=== PATIENT | female | born 1945 | race Caucasian/White ===

== ENCOUNTER → 2018-07-08 | Outpatient (CLI) | payer MEDICARE, OTHER ==
[~2018-07-08] MED LIST: SIMV10TA3 PO
--- NOTE | 2018-07-08 11:30 | RAD ---
MR#: [id number] Date of Study: 07/08/2018 Ordering Physician: JESUS MEDINA, Referring Physician: ARABELLA HUBBARD Tech: RT Derrick Demarco) (N) APPROVED REPORT Test Type: Exercise Stress Nurse/Tech: RT Nilam ([place]) (N) Test Indications: atypical chest pain Cardiac History: none Medications: simvastatin Medical History: history of breast cancer Resting ECG: Sinus valerie, no acute changes Resting Heart Rate: 51 bpm Resting Blood Pressure: 164/62mmHg Pretest Chest Pain: None Nurse/Tech Notes Consent: The procedure was explained to the patient in lay terms. Informed consent was witnessed. Mode eout was entered into [employer]. History and Stress Test performed by RT Derrick Demarco) (N) POST EXERCISE Reason for Termination: Fatigue Target HR: Yes Max HR: 162 bpm 112% of Maximum Predicted HR: 145 bpm Exercise duration: 4:10 min:sec, 2 Stage Exercise capacity: 7METs Max Blood Pressure: 181/73mmHg Blood Pressure response to exercise: Normal blood pressure response during stress. Chest Pain: No. INTERPRETATION Stress EKG Conclusion: nO ISCHEMIA Imaging Protocol IMAGE PROTOCOL: Rest Tc-99m/stress Tc-99m 1 day Rest: Stress: Viability: Radiopharm.Tc99m ZdvyljsqyBn01d Sestamibi Dose11.7mCi 34.2mCi Duration 20min. 15min. Img Date 07/08/2018 07/08/2018 Inj-Img [id number]. 45min. Rest Admin Site:IV - Right AntecubitalAdministrator: RT Nilam ([place])(N) Stress Admin Site: IV - Right AntecubitalAdministrator: RT Derrick Demarco)(N) STRESS DATA End Diast. Vol.58.0mlAv. Heart Rate55.0bpm LVEDV index BSA1.0mlCardiac Output0.1L/min End Syst. Vol.10.0mlCO Index BSA2.6L/min LVESV index BSA0.0mlMyocardial Tiny815.0g Eject. Gdgpnxet23.0% Stress Rates Pk. Fill Rate2.75EDV/secLVtime Pk. Fill 248.62msec Pk. Empty Rate4.01ESV/secLVtime Pk. Zyjcd944.17msec /3 Pk. Fill1.17EDV/sec Stress Scores Regional WT0.00Summed WT1.00 Regional WM0.00Summed WM2.00 The rest and stress images show normal perfusion, normal contraction and thickening. LV Perf. Quant 17 Seg. SSS0.00 17 Seg. SRS0.00 17 Seg. SDS0.00 Stress Defect Extent (% LAD)0.00Rest Defect Extent (% LAD)0.00Rev. Defect Extent (% LAD)0.00 Stress Defect Extent (% LCX) 0.00Rest Defect Extent (% LCX)0.00Rev. Defect Extent (% LCX)0.00 Stress Defect Extent (% RCA)0.00Rest Defect Extent (% RCA)0.00Rev. Defect Extent (% RCA)0.00 Stress Defect Extent (% TONI)0.00Rest Defect Extent (% TONI)0.00Rev. Defect Extent (% TONI)0.00 Other Information Quality:Good Risk Assessment: Low Risk Conclusion 1. No evidence of EKG changes with stress testing. 2. Normal perfusion at stress/rest. 3. Low risk study. 4. EF > 60%. Signed by : Jesus Medina, Electronically Approved : 07/08/2018 11:29:49
== END | disposition home or self-care (01) ==
LOC: NM 07:38
PROVIDERS: ATTEND Internal Medicine Cardiovascular Disease
DX: R07.89 Other chest pain (principal); R00.1 Bradycardia, unspecified; Z85.3 Personal history of malignant neoplasm of breast
CPT/HCPCS: 78452; 93017; 96374; 96375; 96376; A9500

== ENCOUNTER → 2019-06-06 | Outpatient (CLI) | payer MEDICARE, OTHER ==
--- NOTE | 2019-06-10 16:25 | RAD ---
DATE: 06/06/2019 EXAM: MAMMO THANIA SCREENING BILATERAL HISTORY: Routine screening. Left malignancy diagnosed in 2008 with lumpectomy history. COMPARISON: [facility] mammographic examinations performed as far back as 05/04/2015 This study was interpreted with the benefit of Computerized Aided Detection (CAD). Breast Density: HETERO The breast parenchyma is heterogenously dense, which could reduce sensitivity of mammography. Breast parenchyma level C. FINDINGS: Right-sided lumpectomy clips and biopsy clip marker are present. Biopsy clip marker involving the left inner breast is also present. No new masses or suspicious distortion. No suspicious calcifications. IMPRESSION: Stable BI-RADS CATEGORY: 1 NEGATIVE RECOMMENDED FOLLOW-UP: 12M 12 MONTH FOLLOW-UP PQRS compliance statement: Patient information was entered into a reminder system with a target due date for the next mammogram. Mammography is a sensitive method for finding small breast cancers, but it does not detect them all and is not a substitute for careful clinical examination. A negative mammogram does not negate a clinically suspicious finding and should not result in delay in biopsying a clinically suspicious abnormality. "Our facility is accredited by the [employer] Mammography Program."
== END | disposition home or self-care (01) ==
LOC: MAMMO 11:25
PROVIDERS: ATTEND Specialist
DX: Z12.31 Encounter for screening mammogram for malignant neoplasm of breast (principal); Z85.3 Personal history of malignant neoplasm of breast
CPT/HCPCS: 77063; 77067

== ENCOUNTER → 2019-10-31 | Outpatient (CLI) | payer MEDICARE, OTHER ==
[~2019-10-31] MED LIST changes: +SIMV10TA15 PO; -SIMV10TA3 PO
--- NOTE | 2019-10-31 15:37 | RAD ---
CHEST PA LATERAL History: Cough Comparison: None. Findings: Frontal and lateral views of the chest were obtained. The cardiomediastinal silhouette is normal. Pulmonary vasculature is normal. The lungs are clear. No pleural effusion or pneumothorax is seen. There is no acute bone abnormality. Levoconvex scoliosis of the lower thoracic and upper lumbar spine is partially seen. IMPRESSION: No acute cardiopulmonary process. Electronically signed by: Eamon Sellers MD (10/31/2019 3:34 PM) [facility]
== END | disposition home or self-care (01) ==
LOC: DXRAD 15:16
PROVIDERS: ATTEND Specialist
DX: R06.02 Shortness of breath (principal); M41.85 Other forms of scoliosis, thoracolumbar region
CPT/HCPCS: 71046

== ENCOUNTER 2020-06-14 18:54 | Emergency (ER) | payer MEDICARE, OTHER ==
[~2020-06-14] VITALS: Ht 167.6 cm; Wt 66.2 kg
[2020-06-14 18:54] VITALS: BP 149/77
--- NOTE | 2020-06-14 18:59 | PHYS DOC ---
General Adult EDM: Chief Complaint: LACERATION/AVULSION HPI: HPI: ".. I was a little light headed.. and sharad tripped .. fell.. My head hit the edege of the bench.. It did not knock me out....".." could not get the bleeding to stop..." Patient is a 75 year old female who presents with above hx and complaints of 5 cm laceration contusion to forehead a hair line with hematoma.. Patient does not remember her last tetanus. Patient denies any loss of consciousness. Some mild headache tenderness and neck soreness. No other injuries reported. Patient recently being evaluated for dementia. Pt. follows with Ferny Vides. No history of travel. No history of ill contacts. Does have a history of arthritis, TIAs, CVAs. Review of Systems: Review of Systems: Constitutional: Denies fever or chills Eyes: Denies change in visual acuity HENT: Denies nasal congestion or sore throat . Complaints of laceration Respiratory: Denies cough or shortness of breath Cardiovascular: Denies chest pain or edema GI: Denies abdominal pain, nausea, vomiting, bloody stools or diarrhea : Denies dysuria Musculoskeletal: Denies back pain or joint pain Integument: Denies rash Neurologic: Complaints of headache,. Denies focal weakness or sensory changes Endocrine: Denies polyuria or polydipsia Lymphatic: Denies swollen glands Psychiatric: Denies depression or anxiety Heart Score: Risk Factors: Risk Factors: DM, Current or recent (<one month) smoker, HTN, HLP, family h istory of CAD, obesity. Risk Scores: Score 0 - 3: 2.5% MACE over next 6 weeks - Discharge Home Score 4 - 6: 20.3% MACE over next 6 weeks - Admit for Clinical Observation Score 7 - 10: 72.7% MACE over next 6 weeks - Early Invasive Strategies Family History: Family History: Noncontributory Current Medications: Current Meds: See nursing for home meds Allergies: Allergies: Allergies Coded Allergies Type Severity Reaction Last Updated Verified No Known Drug Allergies 07/08/18 No Physical Exam: PE: Constitutional: Mild distress, non-toxic appearance. [] HENT: Normocephalic, 5 cm laceration and hematoma to the hairline frontal, bilateral external ears normal, oropharynx moist, no oral exudates, nose normal. [] Eyes: PERRLA, EOMI, conjunctiva normal, no discharge. [] Neck: Normal range of motion, mild paraspinal tenderness, supple, no stridor. [] Cardiovascular:Heart rate regular rhythm, no murmur [PMI to the left Lungs & Thorax: Bilateral breath sounds equal at apex auscultation [] Abdomen: Bowel sounds normal, soft, no tenderness, no masses, no pulsatile masses. [] Skin: Warm, dry, no erythema, no rash. Poor turgor Back: No tenderness, no CVA tenderness. [] Extremities: No tenderness, no cyanosis, no clubbing, ROM intact, no edema. Arthritic changes Neurologic: Alert and oriented X 3, moves all extremities on request, has distal sensory,, no focal deficits noted. [] Psychologic: Affect anxious, judgement normal, mood normal. [] Patient does report chronic memory issues EKG: EKG: [] Radiology/Procedures: Radiology/Procedures: [place] [address] IMAGING REPORT Signed PATIENT: ALIA REEDER ACCOUNT: [id number] : 1945 LOCATION: ER AGE: 75 SEX: F EXAM STATUS: REG ER ORD. PHYSICIAN: LIANET HAMEED MD REASON: head injury PROCEDURE: CT HEAD AND CERVICAL SPINE WO EXAM: CT head and cervical spine without contrast INDICATION: Head injury COMPARISON: None TECHNIQUE: Axial CT imaging through the head and cervical spine without intravenous contrast. Sagittal and coronal reformats of the cervical spine were obtained. One or more of the following individualized dose reduction techniques were utilized for this examination: 1. Automated exposure control 2. Adjustment of the mA and/or kV according to patient size 3. Use of iterative reconstruction technique. FINDINGS: CT head: The ventricles and sulci are mildly enlarged. There is mild periventricular and deep white matter hypoattenuation, greatest along the frontal horns. There is a small amount of encephalomalacia in the anterior right frontal lobe.. Munguia-white matter differentiation is maintained. There is no intracranial hemorrhage, acute infarct, or mass lesion. Basal cisterns are clear. The skull and scalp are intact. There is mild circumferential mucosal thickening and polypoid debris or retention cysts in the right sphenoid sinus. The remaining paranasal sinuses and mastoid air cells are clear. Globes and orbits are intact.. Globes and orbits are intact. CT cervical spine: No acute fracture. There is 3 mm anterolisthesis of C3 on C4 and 2 mm anterolisthesis of C7 on T1. Mild reversal of lordosis. There is severe disc space narrowing at C4-C5, C5-C6 and C6-C7. Moderate at C3-C4 and C7-T1. Severe facet arthrosis at C3-C4 bilaterally, and on the left at C3. Mild foraminal narrowing at multiple levels. There are large disc osteophyte complexes at C4-C5, C5-6, C6-C7 with suspected mild canal narrowing. Prevertebral soft tissues normal. There are multiple calcifications in the palatine tonsils. A 1.4 cm hypodense nodules in the right thyroid lobe. Mild pleural parenchymal scarring in the lung apices. IMPRESSION: 1. No acute intracranial abnormality. 2. Mild volume loss and mild white matter disease. Small amount of encephalomalacia in the anterior right frontal lobe. 3. No acute osseous abnormality. 4. Moderate to severe degenerative disc disease with degenerative listhesis. Electronically signed by: Xenia Goldman MD (06/14/2020 9:17 PM) [id number] DICTATED AND SIGNED BY: XENIA GOLDMAN MD DATE: 06/14/202116 CC: LIANET HAMEED MD; GLORIA GREENE MD ~ [][address] [id number] IMAGING REPORT Signed PATIENT: ALIA REEDER ACCOUNT: [id number] : 1945 LOCATION: ER AGE: 75 SEX: F EXAM STATUS: PRE ER ORD. PHYSICIAN: LIANET HAMEED MD REASON: head injury , syncope PROCEDURE: CHEST AP ONLY INDICATION: Reason: head injury , syncope / Spl. Instructions: / History: COMPARISON: October 31, 2019 FINDINGS: Single view of chest obtained. No focal airspace consolidation. Cardiac silhouette is unremarkable. Scoliotic curvature throughout the spine. A definite grossly displaced fracture is not seen IMPRESSION: * No focal airspace consolidation or edema. Electronically signed by: Amy Preciado MD (06/14/2020 7:51 PM) [id number] DICTATED AND SIGNED BY: AMY PRECIADO MD DATE: 06/14/201950 CC: LIANET HAMEED MD; GLORIA GREENE MD ~ Course & Med Decision Making: Course & Med Decision Making Pertinent Labs and Imaging studies reviewed. (See chart for details) Procedure note; laceration cleaning and repair-cleaned area of laceration with peroxide and normal saline. Injected into the laceration with 2% lidocaine. Irrigated wound and digitally explored. Placed 3m6-4-Hmomry sutures. Bacitracin applied. Tetanus updated. The patient apply Polysporin to wound 4 times a day. Keep clean and dry. Sutures will dissolve. Return if any concerns. Must have reexam if vomits more than once. Impression: 1. Head injury 2. Laceration 5 cm and contusion [] Nazario Disclaimer: Nazario Disclaimer: This electronic medical record was generated, in whole or in part, using a voice recognition dictation system. Departure Departure: Disposition: 01 HOME/RESIDENCE PRIOR TO ADM Condition: STABLE Referrals: GLORIA GREENE MD (PCP) Nazario Disclaimer This chart was dictated in whole or in part using Voice Recognition software in a busy, high-work load, and often noisy Emergency Department environment. It may contain unintended and wholly unrecognized errors or omissions. LIANET HAMEED MD Jun 14, 2020 18:59
[2020-06-14] MEDS ORDERED: BACITRACIN ZINC TOPICAL OINT PACKET. TP ONE (19:15)
[2020-06-14] MEDS ORDERED: LIDOCAINE 2% 20 ML VIAL. IJ ONE (19:15)
[2020-06-14] MEDS ORDERED: DIPH,PERTUSS(ACELL),TET VAC/PF 0.5 ML SYRINGE. VAX IM ONE (19:30)
--- NOTE | 2020-06-14 19:54 | RAD ---
INDICATION: Reason: head injury , syncope / Spl. Instructions: / History: COMPARISON: October 31, 2019 FINDINGS: Single view of chest obtained. No focal airspace consolidation. Cardiac silhouette is unremarkable. Scoliotic curvature throughout the spine. A definite grossly displaced fracture is not seen IMPRESSION: * No focal airspace consolidation or edema. Electronically signed by: Domenico Preciado MD (06/14/2020 7:51 PM) [id number]
--- NOTE | 2020-06-14 21:20 | RAD ---
EXAM: CT head and cervical spine without contrast INDICATION: Head injury COMPARISON: None TECHNIQUE: Axial CT imaging through the head and cervical spine without intravenous contrast. Sagittal and coronal reformats of the cervical spine were obtained. One or more of the following individualized dose reduction techniques were utilized for this examination: 1. Automated exposure control 2. Adjustment of the mA and/or kV according to patient size 3. Use of iterative reconstruction technique. FINDINGS: CT head: The ventricles and sulci are mildly enlarged. There is mild periventricular and deep white matter hypoattenuation, greatest along the frontal horns. There is a small amount of encephalomalacia in the anterior right frontal lobe.. Munguia-white matter differentiation is maintained. There is no intracranial hemorrhage, acute infarct, or mass lesion. Basal cisterns are clear. The skull and scalp are intact. There is mild circumferential mucosal thickening and polypoid debris or retention cysts in the right sphenoid sinus. The remaining paranasal sinuses and mastoid air cells are clear. Globes and orbits are intact.. Globes and orbits are intact. CT cervical spine: No acute fracture. There is 3 mm anterolisthesis of C3 on C4 and 2 mm anterolisthesis of C7 on T1. Mild reversal of lordosis. There is severe disc space narrowing at C4-C5, C5-C6 and C6-C7. Moderate at C3-C4 and C7-T1. Severe facet arthrosis at C3-C4 bilaterally, and on the left at C3. Mild foraminal narrowing at multiple levels. There are large disc osteophyte complexes at C4-C5, C5-6, C6-C7 with suspected mild canal narrowing. Prevertebral soft tissues normal. There are multiple calcifications in the palatine tonsils. A 1.4 cm hypodense nodules in the right thyroid lobe. Mild pleural parenchymal scarring in the lung apices. IMPRESSION: 1. No acute intracranial abnormality. 2. Mild volume loss and mild white matter disease. Small amount of encephalomalacia in the anterior right frontal lobe. 3. No acute osseous abnormality. 4. Moderate to severe degenerative disc disease with degenerative listhesis. Electronically signed by: Xenia Goldman MD (06/14/2020 9:17 PM) [id number]
--- NOTE | 2020-06-14 23:20 | EKG ---
[address] [address] Test Date: 2020-06-14 Test Time: 19:21:28 Pat Name: ALIA REEDER Department: Room: Gender: F [employer] Worker: : 1945 Requested By: LIANET HAMEED Order Number: [id number] Reading MD: Measurements Intervals [place] Rate: 55 P: -30 RI: 176 QRS: 24 QRSD: 70 T: 29 QT: 430 QTc: 413 Interpretive Statements SINUS RHYTHM NORMAL ECG RI6.02 No previous ECG available for comparison
== END 2020-06-14 21:25 | disposition home or self-care (01) ==
LOC: ER 18:54
DX: S01.81XA Laceration without foreign body of other part of head, initial encounter (principal); W01.0XXA Fall on same level from slipping, tripping and stumbling without subsequent striking against object, initial encounter; Y93.89 Activity, other specified; Y92.89 Other specified places as the place of occurrence of the external cause; Y99.8 Other external cause status
CPT/HCPCS: 12013; 70450; 71045; 72125; 90471; 90715; 93005; 99285; J2001

== ENCOUNTER → 2020-06-21 | Outpatient (CLI) | payer MEDICARE, OTHER ==
[2020-06-14 18:54] VITALS: BP 149/77
--- NOTE | 2020-06-21 14:37 | RAD ---
DATE: 06/21/2020 10:32 AM EXAM: DIGITAL SCREEN BILAT W/CAD HISTORY: Screening COMPARISON: None Bilateral CC and MLO views of the breasts were performed. This study was interpreted with the benefit of Computerized Aided Detection (CAD). FINDINGS: Breast Density: HETERO The breast parenchyma Is heterogeneously dense, which could reduce sensitivity of mammography. Breast parenchyma level C Postoperative changes right breast lumpectomy site, unchanged. Right breast biopsy clip noted. Left breast surgical clip noted. No new suspicious masses, microcalcifications or architectural distortion is present to suggest malignancy in either breast. The visualized axillae are unremarkable. IMPRESSION: Stable bilateral mammograms. No mammographic evidence of malignancy. BI-RADS CATEGORY: 2 BENIGN FINDING(S) RECOMMENDED FOLLOW-UP: Annual screening mammography is recommended, unless clinically indicated sooner based on symptoms or change in physical exam. PQRS compliance statement: Patient information was entered into a reminder system with a target due date 12 month for the next mammogram. Mammography is a sensitive method for finding small breast cancers, but it does not detect them all and is not a substitute for careful clinical examination. A negative mammogram does not negate a clinically suspicious finding and should not result in delay in biopsying a clinically suspicious abnormality. "Our facility is accredited by the [employer] Mammography Program." TOMD
== END ==
LOC: MAMMO 10:25
PROVIDERS: ATTEND Specialist
DX: Z12.31 Encounter for screening mammogram for malignant neoplasm of breast (principal); Z90.10 Acquired absence of unspecified breast and nipple
CPT/HCPCS: 77067

== ENCOUNTER → 2021-06-25 | Outpatient (CLI) | payer MEDICARE, OTHER ==
--- NOTE | 2021-06-25 16:50 | RAD ---
Bilateral digital screening mammograms: Reason for examination: Routine screening. The patient has a personal history of right breast carcino ma with lumpectomy in approximately 2008. Comparison is made to previous study dated 06/06/2019 Interpretation was made with the benefit of CAD. Findings: Breast density: Category C. The breasts are heterogeneously dense, which may obscure small masses.. There are no dominant masses, suspicious calcifications or architectural distortions. Impression: No evidence of malignancy. Assessment: BI-RADS Category 1: Negative. Recommendations: Routine screening mammograms This patient's information has been entered into a reminder system for the patient to be notified wit h the results of her examination and a target date for the next mammogram. Your patient's mammogram demonstrates that she has dense breast tissue (breast density category C or D), which could hide abnormalities, and if she has other risk factors for breast cancer that have bee n identified, she might benefit from supplemental screening tests that may be suggested by you as her ordering physician. Dense breast tissue, in and of itself, is a relatively common condition. Therefo re, this information is not provided to cause undue concern, but rather to raise your awareness and t o promote discussion with your patient regarding the presence of other risk factors, in addition to d ense breast tissue. Electronically signed by: Miley Sawyer MD (06/25/2021 4:47 PM) [id number]
== END ==
LOC: MAMMO 10:20
PROVIDERS: ATTEND Specialist
DX: Z12.31 Encounter for screening mammogram for malignant neoplasm of breast (principal)
CPT/HCPCS: 77067